=== PATIENT | male | born 1960 | race Caucasian/White ===

== ENCOUNTER 2022-01-26 19:34 | Emergency (ER) | payer OTHER ==
[~2022-01-26] VITALS: Ht 170.2 cm; Wt 72.6 kg
[2022-01-26 20:15] VITALS: BP_SYST 129
[2022-01-26] MEDS ORDERED: ACETAMINOPHEN 500 MG TABLET PO ONE (20:45)
[2022-01-26] MEDS ORDERED: NACL 0.9% 1,000 ML IV ONE (22:30)
[2022-01-27] VITALS: BP_SYST 142
== END 2022-01-27 | disposition home or self-care (01) ==
LOC: SED 19:34
DX: J10.1 Influenza due to other identified influenza virus with other respiratory manifestations (principal); Z20.822 Contact with and (suspected) exposure to COVID-19
CPT/HCPCS: 36415; 71045; 96360; 99284